=== PATIENT | female | born 1970 | race Caucasian/White ===

== ENCOUNTER 2019-04-01 00:36 | Emergency (ER) | payer OTHER ==
[~2019-04-01] VITALS: Ht 160 cm; Wt 97.5 kg
--- NOTE | 2019-04-01 00:39 | NUR ---
PT STATES SHE TOOK UNKNOWN AMOUNT OF DOXYLAMINE SUCCINATE TABLET 25MG (96 TABS/BOTTLE, 40 PILLS LEFT) PT STATES SHE PURCHASED BOTTLE ABOUT 1 WEEK AGO
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
--- NOTE | 2019-04-01 00:50 | NUR ---
SPOKE WITH KATELYN FROM POISON CONTROL RECOMMENDATIONS: ADMINISTER CHARCOAL AND OBSERVE 6-8HR AFTER ADMINISTRATION LOBBY CONCIERGE MONITOR FOR QRS WIDENING, IF >120SEC ADMINISTER IV PUSH BICARB MONITOR FOR PROLONGED QT MONITOR ELECTROLYTE LEVEL (POTASSIUM, MAG, CALCIUM) IF PATIENT BECOMES AGITATED OR UNCONTROLLED MUSCLE MOVEMENT, TREAT WITH BENZO
--- NOTE | 2019-04-01 00:56 | NUR ---
UNABLE TO COLLECT URINE AT THIS TIME. WILL TRY AGAIN.
[2019-04-01 00:57] LABS: BASOPHILS # (AUTO) 0.1 /CMM (0.0-0.2); BASOPHILS % (AUTO) 1.4 % (0.0-2.0); EOSINOPHILS % (AUTO) 0.6 % (0.0-6.0); HEMATOCRIT 39 % (33-45); HEMOGLOBIN 12.7 g/dL (11.5-14.8); LYMPHOCYTES # (AUTO) 1.9 /CMM (0.8-4.8); MEAN CORPUSCULAR HGB CONC 33 g/dl (31.0-36.0); MEAN CORPUSCULAR VOLUME 74 fL (82-100); MONOCYTES # (AUTO) 0.4 /CMM (0.1-1.30); MONOCYTES % (AUTO) 5.6 % (2.0-12.0); NEUTROPHILS % (AUTO) 67.4 % (43.0-81.0); PLATELET COUNT (AUTO) 240 /CMM (150-450); RED BLOOD CELL COUNT(AUTO) 5.19 MIL/uL (4.0-5.2); WHITE BLOOD COUNT (AUTO) 7.5 K/uL (4.3-11.0)
--- NOTE | 2019-04-01 00:58 | NUR ---
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 PER KATELYN, STILL OKAY TO TREAT WITH CHARCOAL SINCE PT IS AWAKE, NONDROWSY, AND VITAL SIGNS STABLE. MD MATAMOROS
[2019-04-01] MEDS ORDERED: ACTIVATED CHARCOAL 25 GM/120 ML TUBE PO ONE (01:00)
[2019-04-01 01:06] LABS: CALCIUM, SERUM 9.4 mg/dL (8.5-10.1); CARBON DIOXIDE 31 mmol/L (21-32); CHLORIDE 104 mmol/L (98-107); CREATININE 0.8 mg/dL (0.6-1.3); GLUCOSE 90 mg/dL (74-106); SODIUM SERUM 142 mmol/L (136-145); UREA NITROGEN, BLOOD 10 mg/dL (7-18)
[2019-04-01] MEDS ORDERED: ACTIVATED CHARCOAL 25 GM/120 ML TUBE ONE (01:06)
[2019-04-01 01:12] LABS: ALANINE AMINOTRANSFERASE 17 U/L (12-78); ALBUMIN 3.7 g/dL (3.4-5.0); ALCOHOL, BLOOD < 3 mg/dL (0-0); ALKALINE PHOSPHATASE 93 U/L (46-116); ASPARTATE AMINOTRANSFERASE 18 U/L (15-37); BILIRUBIN,DIRECT 0.1 mg/dL (0.0-0.2); BILIRUBIN,TOTAL 0.9 mg/dL (0.2-1.0); TOTAL PROTEIN, SERUM 7.6 g/dL (6.4-8.2)
[2019-04-01 01:13] LABS: ACETAMINOPHEN 0 ug/ml (10-30); SALICYLATE 0.5 mg/dL (2.8-20.0)
[2019-04-01 01:29] LABS: APPEARANCE,URINE Slightly Cloudy (CLEAR); BILIRUBIN,URINE Negative (NEGATIVE); BLOOD, URINE Negative Ery/uL (NEGATIVE); COLOR,URINE Other (YELLOW); KETONES,URINE Negative (NEGATIVE); LEUKOCYTE ESTERASE ,URINE Large (NEGATIVE); NITRITE, URINE Negative (NEGATIVE); PH,URINE 8.5 (5.0-8.0); PROTEIN,URINE Negative (NEGATIVE); UGLUCOSE Negative (NEGATIVE); UROBILINOGEN,URINE 0.2 EU/dL (0.2)
[2019-04-01 01:52] LABS: RBC,URINE 0-2 /HPF (0-2); WBC,URINE 21-50 /HPF (0-3)
[2019-04-01 01:53] LABS: BACTERIA,URINE Many /HPF (None Seen); SQUAMOUS EPITHELIAL CELL,UR Moderate /HPF (None Seen)
--- NOTE | 2019-04-01 04:24 | NUR ---
PATIENT IS AWAKE AND RESTING COMFORTABLY IN BED. BREATHING EVENLY AND UNLABORED ON ROOM AIR. GIVEN BLANKET FOR COMFORT. CONNECTED TO PMO MANAGER. CALL LIGHT WITHIN REACH.
--- NOTE | 2019-04-01 04:29 | NUR ---
DOMINIQUE FROM CRISIS AT THE BED SIDE INTERVIEWING THE PT
[2019-04-01] MEDS ORDERED: NITROFURANTOIN/NITROFURAN MAC 100 MG CAPSULE PO ONE (05:00)
[2019-04-01] MEDS ORDERED: NITROFURANTOIN/NITROFURAN MAC 100 MG CAPSULE ONE (05:04)
--- NOTE | 2019-04-01 07:35 | NUR ---
TRISTA CALLED, ETA 10MINUTES.
--- NOTE | 2019-04-01 08:12 | NUR ---
IV removed. Catheter intact and site benign. Pressure and 4x4 applied to site. No bleeding noted.Patient discharged to home with friend Danette in stable condition. Written and verbal after care instructions given. Patient verbalizes understanding of instruction.
[2019-04-01 08:20] VITALS: BP 160/101
== END 2019-04-01 08:20 | disposition home or self-care (01) ==
LOC: ER 00:38
DX: T36.4X1A Poisoning by tetracyclines, accidental (unintentional), initial encounter (principal); M19.90 Unspecified osteoarthritis, unspecified site; R94.31 Abnormal electrocardiogram [ECG] [EKG]; Z98.890 Other specified postprocedural states; Z59.0 Homelessness; Y92.89 Other specified places as the place of occurrence of the external cause
CPT/HCPCS: 36415; 80048; 80076; 80305; 80307; 80329; 81001; 85025; 87086; 93005; 99285; G0480; 81000-TC